=== PATIENT | male | born 2000 | race Two or more races ===

== ENCOUNTER 2022-10-19 12:28 | Emergency (ER) | payer MEDICAID, OTHER ==
[~2022-10-19] VITALS: Ht 165.1 cm; Wt 65.8 kg
[2022-10-19] MEDS ORDERED: IBUP-1955 PO (14:35)
[2022-10-19 14:50] VITALS: BP 128/69; TEMP 98.6; O2SAT 100
[2022-10-19] MEDS ORDERED: IBUPROFEN 600 MG TABLET PO ONE (15:00)
== END 2022-10-19 14:51 | disposition home or self-care (01) ==
LOC: ER 12:41
DX: M25.562 Pain in left knee (principal); M25.561 Pain in right knee; W18.30XA Fall on same level, unspecified, initial encounter; Y93.89 Activity, other specified; Y92.34 Swimming pool (public) as the place of occurrence of the external cause; Y99.8 Other external cause status
CPT/HCPCS: 73564-TC